=== PATIENT | female | born 1955 | race Caucasian/White ===

== ENCOUNTER → 2016-05-08 | Outpatient (CLI) | payer BC | END | disposition home or self-care (01) | LOC: GMAB 08:27 | PROVIDERS: ATTEND Family Medicine | DX: R19.7 Diarrhea, unspecified (principal) ==

== ENCOUNTER → 2016-05-13 | Outpatient (CLI) | payer BC | END | disposition home or self-care (01) | LOC: GMAB 14:16 | PROVIDERS: ATTEND Family Medicine | DX: R94.5 Abnormal results of liver function studies (principal) ==

== ENCOUNTER → 2016-05-18 | Outpatient (CLI) | payer BC ==
--- NOTE | 2016-05-18 12:08 | US ---
EXAM DESCRIPTION: Abdomen,Complete CLINICAL HISTORY: ABD PAIN COMPARISON: None Available. TECHNIQUE: Complete abdominal ultrasound FINDINGS: The liver is normal in appearance. There is no focal hepatic mass. The gallbladder is well seen and unremarkable. There are no gallstones. There is no gallbladder wall thickening. The common bile duct is normal in caliber measuring 5.2 mm. The pancreas and the spleen are unremarkable. The kidneys are normal in size, shape, and echotexture. There is no hydronephrosis, mass, or calculus. Incidental note is made of a 10 mm simple cyst in the upper pole of the left kidney. The IVC and the proximal aorta are unremarkable. IMPRESSION: 1. Normal Electronically signed by: Unruly Granados MD 05/18/2016 12:07 PM CDT
== END | disposition home or self-care (01) ==
LOC: US 10:27
PROVIDERS: ATTEND Family Medicine
DX: R94.5 Abnormal results of liver function studies (principal); R10.827 Generalized rebound abdominal tenderness; R11.2 Nausea with vomiting, unspecified

== ENCOUNTER → 2016-05-21 | Outpatient (CLI) | payer BC | END | disposition home or self-care (01) | LOC: LAB.O 13:25 | PROVIDERS: ATTEND Internal Medicine Gastroenterology | DX: A09 Infectious gastroenteritis and colitis, unspecified (principal) ==

== ENCOUNTER → 2016-06-02 | Outpatient (CLI) | payer BC | END | disposition home or self-care (01) | LOC: GMAB 10:20 | PROVIDERS: ATTEND Family Medicine | DX: R19.7 Diarrhea, unspecified (principal) ==

== ENCOUNTER → 2016-07-20 | Outpatient (CLI) | payer BC ==
--- NOTE | 2016-07-20 14:00 | MAM ---
EXAM DESCRIPTION: Screening Mammogram,Bilateral CLINICAL HISTORY: 61 years, Female, Screening mammogram COMPARISON: None TECHNIQUE: CC and MLO digital mammograms with computer aided detection. FINDINGS: The breast parenchyma is heterogeneously dense which may decrease the sensitivity of mammography. There is no dominant mass nor any suspicious microcalcifications. Benign microcalcifications are present. IMPRESSION: BI-RADS 2: BENIGN FOLLOW-UP: Routine mammography screening. Electronically signed by: Unruly Granados MD 07/20/2016 1:59 PM CDT
== END | disposition home or self-care (01) ==
LOC: MAMMO 11:30
PROVIDERS: ATTEND Family Medicine
DX: Z12.31 Encounter for screening mammogram for malignant neoplasm of breast (principal)

== ENCOUNTER → 2017-03-29 | Outpatient (CLI) | payer BC | END | disposition home or self-care (01) | LOC: LAB.O 10:22 | PROVIDERS: ATTEND Nurse Practitioner Family | DX: M06.4 Inflammatory polyarthropathy (principal) ==

== ENCOUNTER 2018-08-17 05:45 | Day surgery (SDC) | payer BC ==
[2018-08-17] MEDS ORDERED: MIDAZOLAM INJ 2 MG/2 ML VIAL ONE (06:56)
[2018-08-17] MEDS ORDERED: LACTATED RINGERS 1,000 ML ONE (07:01)
[2018-08-17] MEDS ORDERED: PROPOFOL 200 MG/20 ML VIAL IV ONE (10:00)
--- NOTE | 2018-08-17 11:50 | OP ---
DATE OF PROCEDURE: 08/17/18 PREOPERATIVE DIAGNOSIS: 1. Change in bowel habits. POSTOPERATIVE DIAGNOSIS: 1. Unremarkable colonoscopy and terminal ileum. PROCEDURE: 1. Colonoscopy plus biopsy plus aspiration of fluid to send for Clostridioides difficile toxin. SURGEON: Elieser Middleton MD. COMPLICATIONS: None apparent. BLOOD LOSS: None. MEDICATIONS: Monitored anesthesia care. DESCRIPTION OF PROCEDURE: Informed consent was obtained prior to sedation. The preprocedure cardiopulmonary assessment was satisfactory. The patient was placed in the left lateral decubitus position and was sedated. A digital rectal exam reveals no rectal masses. The perianal region was normal. The tip of the Olympus colonoscope was inserted in the rectum and easily guided over to the cecum. The cecum was identified by locating the ileocecal valve and appendiceal orifice. The ileocecal valve was intubated and terminal ileum was unremarkable. There was no evidence of inflammation there in the ileum. There is brownish fluid scattered in the colon and some of this was suctioned away and collected to send for C. difficile toxin. The mucosa of the cecum, ascending colon, hepatic flexure, transverse colon, splenic flexure, descending colon and sigmoid colon was closely examined. Direct and retroflexed views of the rectum were obtained. The colon mucosa is normal in appearance. There is no evidence of pseudomembranes, colitis, ulcers, etc. However, random colon biopsies were obtained with cold biopsy forceps to rule out microscopic colitis. RECOMMENDATIONS: Followup C. difficile results and the biopsy results. #[id number] [facility]
[2018-08-17 12:28] VITALS: TEMP 97.4; O2SAT 100
[2018-08-17 12:29] VITALS: BP 134/81
== END 2018-08-17 12:40 | disposition home or self-care (01) ==
LOC: AMB 05:45
PROVIDERS: ATTEND Internal Medicine Gastroenterology
DX: K52.9 Noninfective gastroenteritis and colitis, unspecified (principal)
CPT/HCPCS: 00811; 45380; 87324; 87449; 87493; J2250; J3490; J7120

== ENCOUNTER → 2018-10-03 | Outpatient (CLI) | payer BC | LOC: GMAE 10:17 | PROVIDERS: ATTEND Family Medicine | DX: M45.9 Ankylosing spondylitis of unspecified sites in spine (principal); I10 Essential (primary) hypertension ==

== ENCOUNTER → 2019-05-16 | Outpatient (CLI) | payer BC | DX: K52.89 Other specified noninfective gastroenteritis and colitis (principal); R19.7 Diarrhea, unspecified ==

== ENCOUNTER → 2019-06-05 | Outpatient (CLI) | payer BC | LOC: LAB.O 09:44 | PROVIDERS: ATTEND Specialist | DX: K51.80 Other ulcerative colitis without complications (principal); R10.31 Right lower quadrant pain; R10.11 Right upper quadrant pain ==

== ENCOUNTER 2020-01-26 18:59 | Emergency (ER) | payer BC ==
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
[2020-01-26] MEDS ORDERED: CLINDAMYCIN HCL CAP 150 MG CAP PO ONE (20:28)
[2020-01-26] MEDS ORDERED: IBUPROFEN 200 MG TAB PO ONE (20:37)
[2020-01-26 20:43] VITALS: BP 156/77; TEMP 98.4; O2SAT 97
== END 2020-01-26 20:42 | disposition home or self-care (01) ==
LOC: ER 18:59
DX: S01.512A Laceration without foreign body of oral cavity, initial encounter (principal); K08.89 Other specified disorders of teeth and supporting structures; F32.9 Major depressive disorder, single episode, unspecified; I10 Essential (primary) hypertension; Z79.899 Other long term (current) drug therapy; Z91.041 Radiographic dye allergy status; Z91.013 Allergy to seafood; Z88.5 Allergy status to narcotic agent; Y04.0XXA Assault by unarmed brawl or fight, initial encounter; Y92.000 Kitchen of unspecified non-institutional (private) residence as the place of occurrence of the external cause